=== PATIENT | female | born 1990 | race Caucasian/White ===

== ENCOUNTER 2023-04-06 09:01 | Outpatient (REF) | payer OTHER, SELFPAY ==
[2023-04-06 11:32] LABS: Alanine Aminotransferase 48 U/L (0-31); Albumin Level 4.4 g/dL (3.5-5.0); Alkaline Phosphatase 59 U/L (39-117); Aspartate Amino Transferase 36 U/L (5-31); Bilirubin Direct 0.2 mg/dL (0.0-0.5); Bilirubin Total 0.5 mg/dL (0.0-1.0); C Reactive Protein < 0.04 mg/dL (< or = 0.50); Total Protein 7.4 g/dL (6.5-8.0)
[2023-04-06 11:34] LABS: HBS Num1 1.11 mIU/mL (0-7.99); HBc Num1 0.09 S/CO (0.00-0.79); HBsAGNum1 0.26 S/CO (0.00-0.99); HIV AB/AG Nonreactive (Nonreactive); HIV Num 1 0.05 S/CO (0.00-0.99); Hepatitis B Core Antibody Nonreactive (Nonreactive); ~HepC Num1 0.13 S/CO (0.00-0.79); ~Hepatitis A Antibody IgM Nonreactive (Nonreactive); ~Hepatitis B Surface Antibody NONREACTIVE (Nonreactive); ~Hepatitis C Antibody Nonreactive (Nonreactive)
[2023-04-06 11:35] LABS: Hepatitis B Surface Antigen Negative (Negative)
[2023-04-06 11:48] LABS: Ferritin 44 ng/mL (10-122); TSH reflex Free T4 0.91 uIU/mL (0.32-4.0)
[2023-04-06 11:57] LABS: Gamma Glutamyl Transpeptidase 14 U/L (7-33)
[2023-04-07 05:54] LABS: EBV-NA IgG Index >600.00 U/mL; EBV-VCA IgM Ab <36.00 U/mL
[2023-04-07 16:53] LABS: Mitochondrial Antibodies NEGATIVE (NEGATIVE)
[2023-04-10 12:24] LABS: Smooth Muscle Antibody <20 U (<20)
[2023-04-12 12:58] LABS: ANA Pattern 2 Nuclear, Speckled; ANA Titer 2 1:40 titer; Anti Nuclear Antibody Screen POSITIVE (NEGATIVE)
== END 2023-04-06 09:02 | disposition home or self-care (01) ==
LOC: HO.LAB 09:01
PROVIDERS: PCP Family Medicine; Visit Provider Nurse Practitioner
DX: Z01.818 Encounter for other preprocedural examination (principal); R19.7 Diarrhea, unspecified; R11.0 Nausea; R74.01 Elevation of levels of liver transaminase levels
CPT/HCPCS: 36415; 80076; 82105; 82728; 82977; 84443; 86015; 86038; 86039; 86140; 86381; 86664; 86665; 86704; 86706; 86709; 86803; 87340; 87389

== ENCOUNTER 2023-04-06 09:01 | Outpatient (AMB) | payer OTHER, SELFPAY ==
--- NOTE | 2023-04-06 09:03 | MHC.OFFVIS ---
Intake Vital Signs 04/06/23 09:06 Height 5 ft 3 in Weight 130 lb BMI 23.0 BP 101/61 Blood Pressure Location Lt brachial Position Sitting Pulse 71 Intake Visit Reasons: Colonoscopy Screening / Diarreha Intake Note: Dalia presents in the office as a new patient colonoscopy screening and diarrhea. CC: In general she will have pains in her stomach. No blood when she has a BM. She suffers from reflux when she eats. Allergies coconut [COCONUT] Allergy (Unknown, Unverified 04/06/23 09:05) TONGUE ITCHY gluten [GLUTEN] Allergy (Unknown, Unverified 04/06/23 09:05) CELIACS DISEASE TREE NUTS Allergy (Unknown, Uncoded 04/06/23 09:05) TONGUE ITCHY WITH SOME TREE NUTS, GI SXS HPI Colonoscopy Screening / Diarreha HPI Details 32-year-old female here for initial evaluation of acute onset dyspepsia and diarrhea. She is referred by Pat Ware MD of [facility]. PMX Asthma Celiac disease Depression/anxiety/OCD Seasonal allergies History of ASCUS * SURGICAL HISTORY bilateral self injectomy fallopian tubes removed [place] teeth removed. * ALLERGIES : NKDA * PCP supplied labs test results: 12/2022 unremarkable CBC, unremarkable renal panel, total bilirubin normal AST/ALT elevated 45/62 with a normal alk-phos, negative H pylori breath, negative stool culture and ova and parasites study, negative tTG a study ULTRASOUND STUDY ORDERED BY PCP WAS OF THE PELVIS ONLY SHOWED POSSIBLE ENDOMETRIAL POLYP TODAY'S VISIT She she had a sudden onset of diarrhea in December 2022 with postprandial bowel movements initially were mixed to saw in early January worsened to pure liquid stools the bowel movement she had a lot of mucus and sometimes was passing only mucus. With this she had frequent nausea but no vomiting or dysphagia, also she would have intermittent right lower quadrant that she described as aching that would last about a day. It would range about 3/10 in intensity. She continues to have severe bloating. Her bowels are now more solid but she does not know why. The only change she has made is that she is eating more slowly and chewing her food more thoroughly. She admits that she just went through a very stressful loss of a personal relationship and this stress is now easing. She cannot identify any new medications or medication changes, illness, or diet changes that pre seated the change in her stooling. She has known celiac to but has religiously avoided gluten for over 10 years. Her tissue transglutaminase provided by her primary care provider backed this. She has also had extensive allergy testing for other things and the only thing this uncovered was lactose intolerance Alysha nut allergy. There is no known family history of gallbladder disease. She also incidentally has had an increase in her transaminases noted on routine lab work. There is no known family history of liver disease. She will only drink alcohol about 5 times a year and certainly not to access she is not overweight and has not gained weight recently. I will add basic labs to work this up to see if there is any reversible causes... We will get a colonoscopy along with a fecal calprotectin and pancreatic elastaste to further explore her symptoms. I think an ultrasound would be prudent to rule out any possible gallbladder disease. This will also allow us to see what her liver looks like. At this point there are no new interventions and I will see her after the colonoscopy to go over all of her labs. There are any very abnormal labs I will contact her for further testing or consideration she was advised to sign up for patient portal and given her medical record number to facilitate this. There are no prior problems with anesthesia or sedation. Her asthma is well controlled and she denies any cardiac problems. There are no infectious disease problems. There is no known family history of colon cancer or other colon Diseases such as IBD etc. [facility] Medical History (Updated 04/06/23 @ 12:07 by GREGORIA Meehan) Pap smear vag w ASC-US Surgical History (Updated 04/06/23 @ 12:04 by GREGORIA Meehan) H/O wisdom tooth extraction H/O bilateral salpingectomy Hx of colonoscopy History of esophagogastroduodenoscopy (EGD) Family History (Updated 04/06/23 @ 12:05 by GREGORIA Meehan) Father Celiac disease Social History (Updated 04/06/23 @ 09:13 by DIANE Morataya) Alcohol intake: current Alcohol intake frequency: holidays/special occasions only Patient Tobacco Use Status: Never used Tobacco Use of substances other than those prescribed or required for medical reasons: No Review of Systems Const Denies fatigue, Denies fever(s), Denies night sweats, Denies poor appetite and Denies weight loss Eyes Details: glasses Reports requires corrective lenses ENT Reports Normal hearing present, Denies dental pain, Denies dysphagia, Denies hearing loss, Denies mouth pain, Denies odynophagia, Denies throat swelling, Denies tongue swelling and Reports other (Dentition adequate) Card Reports no additional complaints Resp Reports no additional complaints GI Denies abdominal pain, Denies melena, Reports bloating, Denies hematochezia, Denies constipation, Denies GI cramping, Denies dysphagia, Denies excessive flatus, Denies early satiety, Denies heartburn, Reports diarrhea, Reports nausea, Denies odynophagia, Denies vomiting and Denies hematemesis Skin/Breast Denies pruritus, Denies lesions, Denies rash and Denies jaundice Neuro Reports Normal hearing present and Denies Abnormal speech present Psych Reports anxiety Endo Denies fatigue Aller/Immun Denies throat swelling and Denies tongue swelling Physical Exam Vital Signs: Last Vital Signs Pulse 71 04/06/23 09:06 BP 101/61 04/06/23 09:06 BMI result Body Mass Index 23.0 Const General: cooperative, no acute distress, well developed and well groomed Nutritional Appearance: average body habitus and well nourished Orientation/consciousness: oriented to person, oriented to place and oriented to time Limitations: No language barrier HEENT Head: Yes normocephalic and Yes atraumatic Eyes General: appearance normal, both eyes and all related structures Pupils: Equal, round and reactive pupils present Neck Neck: Yes normal visual inspection and Yes no lymphadenopathy Thyroid: Thyroid normal Resp Effort & Inspection: normal respiratory effort and able to speak in complete sentences Auscultation: clear to auscultation bilaterally Cardio Rate: regular rate Rhythm: regular rhythm Heart sounds: Normal, physiologic split S2 sound present Peripheral pulses: radial pulses present and posterior tibial pulses present GI Inspection: No distended and No Abdominal panniculus present Palpation (GI): Soft to palpation, nontender, no guarding, not rigid and No hepatosplenomegaly present Percussion: Yes normal to percussion Auscultation: normal bowel sounds Rectal Exam - Female: deferred Abdomen image: 1. Surgical scar Skin General skin exam: no rashes or lesions noted, turgor normal, skin not dry, no jaundice, No spider nevi and no striae Rashes: no rashes Nails: normal Neuro General: oriented to person, oriented to place and oriented to time Cranial nerves: Yes Equal, round and reactive pupils present and Yes Normal hearing present Speech: No Abnormal speech present Extrem General: Yes normal to inspection, No clubbing, No cyanosis and No edema Psych Appearance: grossly normal and well kempt Mental Status: mental status grossly normal Speech and movement: Normal speech and movement present Affect: normal affect Attitude: cooperative Thought process: Normal thought process present and not confabulating Thought content: Normal thought content present Insight: Fair insight present (Psych) Judgement: Fair judgement present (Psych) Assessment & Plan Assessment & Plan (1) Pre-op examination: Code(s): Z01.818 - Encounter for other preprocedural examination (2) Diarrhea: Code(s): R19.7 - Diarrhea, unspecified (3) Transaminitis: Code(s): R74.01 - Elevation of levels of liver transaminase levels (4) Nausea: Code(s): R11.0 - Nausea Plan She she had a sudden onset of diarrhea in December 2022 with postprandial bowel movements initially were mixed to saw in early January worsened to pure liquid stools the bowel movement she had a lot of mucus and sometimes was passing only mucus. With this she had frequent nausea but no vomiting or dysphagia, also she would have intermittent right lower quadrant that she described as aching that would last about a day. It would range about 3/10 in intensity. She continues to have severe bloating. Her bowels are now more solid but she does not know why. The only change she has made is that she is eating more slowly and chewing her food more thoroughly. She admits that she just went through a very stressful loss of a personal relationship and this stress is now easing. She cannot identify any new medications or medication changes, illness, or diet changes that pre seated the change in her stooling. She has known celiac to but has religiously avoided gluten for over 10 years. Her tissue transglutaminase provided by her primary care provider backed this. She has also had extensive allergy testing for other things and the only thing this uncovered was lactose intolerance Alysha nut allergy. There is no known family history of gallbladder disease. She also incidentally has had an increase in her transaminases noted on routine lab work. There is no known family history of liver disease. She will only drink alcohol about 5 times a year and certainly not to access she is not overweight and has not gained weight recently. I will add basic labs to work this up to see if there is any reversible causes... We will get a colonoscopy along with a fecal calprotectin and pancreatic elastaste to further explore her symptoms. I think an ultrasound would be prudent to rule out any possible gallbladder disease. This will also allow us to see what her liver looks like. At this point there are no new interventions and I will see her after the colonoscopy to go over all of her labs. There are any very abnormal labs I will contact her for further testing or consideration she was advised to sign up for patient portal and given her medical record number to facilitate this. There are no prior problems with anesthesia or sedation. Her asthma is well controlled and she denies any cardiac problems. There are no infectious disease problems. There is no known family history of colon cancer or other colon Diseases such as IBD etc. Orders: Orders Colonoscopy - GI Use Only Today Z01.818 - Encounter for other preprocedural examination C Reactive Protein Today R19.7 - Diarrhea, unspecified, Z01.818 - Encounter for other preprocedural examination US abdomen complete Today R19.7 - Diarrhea, unspecified, Z01.818 - Encounter for other preprocedural examination CELINE Reflex Titer and Pattern Today R74.01 - Elevation of levels of liver transaminase levels Ferritin Today R74.01 - Elevation of levels of liver transaminase levels TSH reflex Free T4 Today R74.01 - Elevation of levels of liver transaminase levels Smooth Muscle Antibody Today R74.01 - Elevation of levels of liver transaminase levels Pancreatic Elastase-1 Today R19.7 - Diarrhea, unspecified, Z01.818 - Encounter for other preprocedural examination Calprotectin, Fecal Today R19.7 - Diarrhea, unspecified, Z01.818 - Encounter for other preprocedural examination Alpha Fetoprotein Today R74.01 - Elevation of levels of liver transaminase levels Paige-Martinez Virus Profile Today R74.01 - Elevation of levels of liver transaminase levels Gamma Glutamyl Transpeptidase Today R74.01 - Elevation of levels of liver transaminase levels Hepatitis A,B,C Profile Today R74.01 - Elevation of levels of liver transaminase levels HIV Ab/Ag Today R74.01 - Elevation of levels of liver transaminase levels Mitochondrial Antibody Today R74.01 - Elevation of levels of liver transaminase levels Liver Panel Today R74.01 - Elevation of levels of liver transaminase levels Medications: New sodium,potassium,mag sulfates 17.5-3.13-1.6 gram (Suprep Bowel Prep Kit) 480 mL orally; 354 mL 0RF sodium,potassium,mag sulfates 17.5-3.13-1.6 gram (Suprep Bowel Prep Kit) 480 mL orally; 354 mL 0RF Coding Level of Care Code New Pt Level 3 (45367) Diagnoses Pre-op examination Z01.818 Diarrhea R19.7 Transaminitis R74.01 Nausea R11.0
[2023-04-06 09:06] VITALS: BP 101/61; PULSE 71; BMI 23.0
== END 2023-04-06 10:14 | disposition home or self-care (01) ==
PROVIDERS: PCP Family Medicine; Visit Provider Nurse Practitioner
DX: R19.7 Diarrhea, unspecified (principal); R74.01 Elevation of levels of liver transaminase levels; R11.0 Nausea
CPT/HCPCS: 99203

== ENCOUNTER 2023-06-15 08:00 | Outpatient (REF) | payer OTHER, SELFPAY ==
--- NOTE | ~2023-06-15 | US_ITS ---
EXAMINATION: US ABDOMEN COMPLETE CLINICAL INFORMATION: Encounter for other preprocedural examination. COMPARISON: None available. TECHNIQUE: Real-time imaging of the abdominal viscera. Limited visualization due to bowel gas. FINDINGS: PANCREAS: Limited visualization of pancreatic tail and head. Imaged portion of pancreatic body is unremarkable. ABDOMINAL AORTA: Unremarkable. INFERIOR VENA CAVA: Visualized portions are normal. LIVER: Mild hepatic parenchymal heterogeneity and echogenicity could be associated with hepatocellular disease/hepatic steatosis and substantially limits visualization. Correlation with liver function tests and clinical exam recommended to determine further management. GALLBLADDER: No gallstones. No gallbladder wall thickening. COMMON BILE DUCT: Measures 0.2 cm in diameter. RIGHT KIDNEY: Mild fullness right renal pelvis with prominent renal pyramids. No renal calculi. Renal cortical thickness is normal. Limited visualization. The kidney measures 10.1 cm in maximum dimension. LEFT KIDNEY: No hydronephrosis. No renal calculi. Renal cortical thickness is normal. Limited visualization. The kidney measures 10.0 cm in maximum dimension. SPLEEN: Normal. The spleen measures 9.7 cm in maximum dimension. FREE FLUID: None. US/US abdomen complete IMPRESSION: 1. Mild increased hepatic parenchymal heterogeneity and echogenicity could be associated with hepatocellular disease/hepatic steatosis and substantially limits visualization. Correlation with liver function tests and clinical exam recommended to determine further management. 2. Mild fullness right renal pelvis with prominent renal pyramids. No renal calculi.
== END 2023-06-15 08:01 | disposition home or self-care (01) ==
LOC: HO.US 08:00
PROVIDERS: PCP Family Medicine; Visit Provider Nurse Practitioner
DX: Z01.818 Encounter for other preprocedural examination (principal); R19.7 Diarrhea, unspecified
CPT/HCPCS: 76700

== ENCOUNTER 2023-09-02 10:18 | Outpatient (REF) | payer OTHER, SELFPAY ==
[2023-09-09 20:38] LABS: Calprotectin, Fecal 19 mcg/g
[2023-09-10 17:38] LABS: Pancreatic Elastase-1 >500 mcg/g
== END 2023-09-02 10:19 | disposition home or self-care (01) ==
LOC: HO.LNP 10:18
PROVIDERS: Visit Provider Nurse Practitioner
DX: Z01.818 Encounter for other preprocedural examination (principal); R19.7 Diarrhea, unspecified
CPT/HCPCS: 82656; 83993

== ENCOUNTER 2023-09-09 15:03 | Outpatient (AMB) | payer OTHER, SELFPAY ==
--- NOTE | 2023-09-09 15:13 | MHC.OFFVIS ---
Vital Signs 09/09/23 15:14 Height 5 ft 3 in BMI Reason not done Patient refused/unable BP 103/54 L Blood Pressure Location Rt brachial Position Sitting Intake Visit Reasons: Follow up Intake Note: Dalia returns to in office follow up of labs and US. CC: Patient states that she gets diarrhea only when she eats certain foods. She states that acid reflux is presents but managed . She expresses concerns about liver findings in US and would like to discuss further today with provider. Corporate Relations Manager Required: No Accompanied by: Self / Same As Patient Allergies coconut [COCONUT] Allergy (Unknown, Verified 09/09/23 15:15) TONGUE ITCHY gluten [GLUTEN] Allergy (Unknown, Verified 09/09/23 15:15) CELIACS DISEASE No Known Drug Allergies Allergy (Unknown, Verified 09/09/23 15:19) none mixed fish Allergy (Unknown, Uncoded 09/09/23 15:19) Unknown TREE NUTS Allergy (Unknown, Uncoded 04/06/23 09:05) TONGUE ITCHY WITH SOME TREE NUTS, GI SXS HPI HPI Follow up: Details: Assessment & Plan (1) Pre-op examination: Code(s): Z01.818 - Encounter for other preprocedural examination (2) Diarrhea: Code(s): R19.7 - Diarrhea, unspecified (3) Transaminitis: Code(s): R74.01 - Elevation of levels of liver transaminase levels (4) Nausea: Code(s): R11.0 - Nausea Plan She she had a sudden onset of diarrhea in December 2022 with postprandial bowel movements initially were mixed to saw in early January worsened to pure liquid stools the bowel movement she had a lot of mucus and sometimes was passing only mucus. With this she had frequent nausea but no vomiting or dysphagia, also she would have intermittent right lower quadrant that she described as aching that would last about a day. It would range about 3/10 in intensity. She continues to have severe bloating. Her bowels are now more solid but she does not know why. The only change she has made is that she is eating more slowly and chewing her food more thoroughly. She admits that she just went through a very stressful loss of a personal relationship and this stress is now easing. She cannot identify any new medications or medication changes, illness, or diet changes that pre seated the change in her stooling. She has known celiac to but has religiously avoided gluten for over 10 years. Her tissue transglutaminase provided by her primary care provider backed this. She has also had extensive allergy testing for other things and the only thing this uncovered was lactose intolerance Alysha nut allergy. There is no known family history of gallbladder disease. She also incidentally has had an increase in her transaminases noted on routine lab work. There is no known family history of liver disease. She will only drink alcohol about 5 times a year and certainly not to access she is not overweight and has not gained weight recently. I will add basic labs to work this up to see if there is any reversible causes... We will get a colonoscopy along with a fecal calprotectin and pancreatic elastaste to further explore her symptoms. I think an ultrasound would be prudent to rule out any possible gallbladder disease. This will also allow us to see what her liver looks like. At this point there are no new interventions and I will see her after the colonoscopy to go over all of her labs. There are any very abnormal labs I will contact her for further testing or consideration she was advised to sign up for patient portal and given her medical record number to facilitate this. There are no prior problems with anesthesia or sedation. Her asthma is well controlled and she denies any cardiac problems. There are no infectious disease problems. There is no known family history of colon cancer or other colon Diseases such as IBD etc. Orders: Orders Colonoscopy - GI Use Only Today Z01.818 - Encounter for other preprocedural examination C Reactive Protein Today R19.7 - Diarrhea, unspecified, Z01.818 - Encounter for other preprocedural examination US abdomen complete Today R19.7 - Diarrhea, unspecified, Z01.818 - Encounter for other preprocedural examination CELINE Reflex Titer and Pattern Today R74.01 - Elevation of levels of liver transaminase levels Ferritin Today R74.01 - Elevation of levels of liver transaminase levels TSH reflex Free T4 Today R74.01 - Elevation of levels of liver transaminase levels Smooth Muscle Antibody Today R74.01 - Elevation of levels of liver transaminase levels Pancreatic Elastase-1 Today R19.7 - Diarrhea, unspecified, Z01.818 - Encounter for other preprocedural examination Calprotectin, Fecal Today R19.7 - Diarrhea, unspecified, Z01.818 - Encounter for other preprocedural examination Alpha Fetoprotein Today R74.01 - Elevation of levels of liver transaminase levels Paige-Martinez Virus Profile Today R74.01 - Elevation of levels of liver transaminase levels Gamma Glutamyl Transpeptidase Today R74.01 - Elevation of levels of liver transaminase levels Hepatitis A,B,C Profile Today R74.01 - Elevation of levels of liver transaminase levels HIV Ab/Ag Today R74.01 - Elevation of levels of liver transaminase levels Mitochondrial Antibody Today R74.01 - Elevation of levels of liver transaminase levels Liver Panel Today R74.01 - Elevation of levels of liver transaminase levels Medications: New sodium,potassium,mag sulfates 17.5-3.13-1.6 gram (Suprep Bowel Prep Kit) 480 mL orally; 354 mL 0RF sodium,potassium,mag sulfates 17.5-3.13-1.6 gram (Suprep Bowel Prep Kit) 480 mL orally; 354 mL 0RF LABS: Laboratory Tests 04/06/23 09/02/23 10:08 20:15 Ferritin 44 Total Bilirubin 0.5 Direct Bilirubin 0.2 GGT 14 AST 36 H ALT 48 H Alkaline Phosphatase 59 C-Reactive Protein < 0.04 Alpha Fetoprotein 1.0 TSH 0.91 Stool Calprotectin Pending Stool Pancreat Elastase Pending CELINE Screen POSITIVE A CELINE Titer 1:80 H CELINE Titer 2 1:40 H CELINE Pattern A CELINE Pattern 2 Nuclear, Speckled A Anti-Mitochondrial Ab NEGATIVE Anti-Smooth Muscle Ab <20 Hepatitis A IgM Ab Nonreactive Hep Bs Antigen Negative Hep Bs Antibody NONREACTIVE Hep B Core Total Ab Nonreactive Hepatitis C Ab (EIA) Nonreactive HIV 1&2 Ab/P24 Ag 4thGn Nonreactive ULTRASOUND OF THE ABDOMEN 06/15/23 FINDINGS: PANCREAS: Limited visualization of pancreatic tail and head. Imaged portion of pancreatic body is unremarkable. ABDOMINAL AORTA: Unremarkable. INFERIOR VENA CAVA: Visualized portions are normal. LIVER: Mild hepatic parenchymal heterogeneity and echogenicity could be associated with hepatocellular disease/hepatic steatosis and substantially limits visualization. Correlation with liver function tests and clinical exam recommended to determine further management. GALLBLADDER: No gallstones. No gallbladder wall thickening. COMMON BILE DUCT: Measures 0.2 cm in diameter. RIGHT KIDNEY: Mild fullness right renal pelvis with prominent renal pyramids. No renal calculi. Renal cortical thickness is normal. Limited visualization. The kidney measures 10.1 cm in maximum dimension. LEFT KIDNEY: No hydronephrosis. No renal calculi. Renal cortical thickness is normal. Limited visualization. The kidney measures 10.0 cm in maximum dimension. SPLEEN: Normal. The spleen measures 9.7 cm in maximum dimension. FREE FLUID: None. US/US abdomen complete IMPRESSION: 1. Mild increased hepatic parenchymal heterogeneity and echogenicity could be associated with hepatocellular disease/hepatic steatosis and substantially limits visualization. Correlation with liver function tests and clinical exam recommended to determine further management. 2. Mild fullness right renal pelvis with prominent renal pyramids. No renal calculi. COLONOSCOPY SCHEDULED FOR 12/12/2023 BIOPSY TODAY'S VISIT She has found some correlation between foods causing her diarrhea usually high FODMAP foods, cashews, bananas and o fcourse wheat (Celiac disease) and lactose intolerant. Garlic also drives this. The nausea and cramping have also improved. We still have some stool studies pending but I expect that these probably will not be significant for inflammatory bowel disease. Review all of the labs and appears she simply has fatty liver disease so she is educated about this. She is happy now with a GI regimen and agreeable to keeping her appointment in November after her colonoscopy. [facility] Medical History Pap smear vag w [facility] Surgical History H/O wisdom tooth extraction H/O bilateral salpingectomy Hx of colonoscopy History of esophagogastroduodenoscopy (EGD) Family History Father Celiac disease Social History Alcohol intake: current Alcohol intake frequency: holidays/special occasions only Patient Tobacco Use Status: Never used Tobacco Use of substances other than those prescribed or required for medical reasons: No Are you DNR?: No Advance Directives: No Advance Directives Information Provided: Yes Review of Systems Const Denies fatigue, Denies fever(s), Denies night sweats, Denies poor appetite and Denies weight loss ENT Reports Normal hearing present, Denies dental pain, Denies dysphagia, Denies hearing loss, Denies mouth pain, Denies odynophagia, Denies throat swelling, Denies tongue swelling and Reports other (Dentition adequate) Card Reports no additional complaints Resp Reports no additional complaints GI Details: Denies abdominal pain, Denies melena, Reports bloating, Denies hematochezia, Denies constipation, Reports GI cramping, Denies dysphagia, Denies excessive flatus, Denies early satiety, Denies heartburn, Reports diarrhea, Denies nausea, Denies odynophagia, Denies vomiting and Denies hematemesis Skin/Breast Denies pruritus, Denies lesions, Denies rash and Denies jaundice Neuro Reports Normal hearing present and Denies Abnormal speech present Endo Denies fatigue Aller/Immun Denies throat swelling and Denies tongue swelling Physical Exam Vital Signs: Last Vital Signs BP 103/54 L 09/09/23 15:14 Const General: cooperative, no acute distress, well developed and well groomed Nutritional Appearance: average body habitus and well nourished Orientation/consciousness: oriented to person, oriented to place and oriented to time Limitations: No language barrier HEENT Head: Yes normocephalic and Yes atraumatic Eyes General: appearance normal, both eyes and all related structures Pupils: Equal, round and reactive pupils present Neck Neck: Yes normal visual inspection and Yes no lymphadenopathy Thyroid: Thyroid normal Resp Effort & Inspection: normal respiratory effort and able to speak in complete sentences Auscultation: clear to auscultation bilaterally Cardio Rate: regular rate Rhythm: regular rhythm Heart sounds: Normal, physiologic split S2 sound present Peripheral pulses: radial pulses present and posterior tibial pulses present GI Inspection: No distended and No Abdominal panniculus present Palpation (GI): Soft to palpation, nontender, no guarding, not rigid and No hepatosplenomegaly present Percussion: Yes normal to percussion Auscultation: normal bowel sounds Rectal Exam - Female: deferred Skin General skin exam: no rashes or lesions noted, turgor normal, skin not dry, no jaundice, No spider nevi and no striae Rashes: no rashes Nails: normal Neuro General: oriented to person, oriented to place and oriented to time Cranial nerves: Yes Equal, round and reactive pupils present and Yes Normal hearing present Speech: No Abnormal speech present Extrem General: Yes normal to inspection, No clubbing, No cyanosis and No edema Psych Appearance: grossly normal and well kempt Mental Status: mental status grossly normal Speech and movement: Normal speech and movement present Affect: normal affect Attitude: cooperative Thought process: Normal thought process present and not confabulating Thought content: Normal thought content present Insight: Fair insight present (Psych) Judgement: Fair judgement present (Psych) Results Reviewed Results Reviewed: Laboratory Tests 04/06/23 09/02/23 10:08 20:15 Ferritin 44 Total Bilirubin 0.5 Direct Bilirubin 0.2 GGT 14 AST 36 H ALT 48 H Alkaline Phosphatase 59 C-Reactive Protein < 0.04 Alpha Fetoprotein 1.0 TSH 0.91 Stool Calprotectin Pending Stool Pancreat Elastase Pending CELINE Screen POSITIVE A CELINE Titer 1:80 H CELINE Titer 2 1:40 H CELINE Pattern A CELINE Pattern 2 Nuclear, Speckled A Anti-Mitochondrial Ab NEGATIVE Anti-Smooth Muscle Ab <20 Hepatitis A IgM Ab Nonreactive Hep Bs Antigen Negative Hep Bs Antibody NONREACTIVE Hep B Core Total Ab Nonreactive Hepatitis C Ab (EIA) Nonreactive HIV 1&2 Ab/P24 Ag 4thGn Nonreactive ULTRASOUND OF THE ABDOMEN 06/15/23 FINDINGS: PANCREAS: Limited visualization of pancreatic tail and head. Imaged portion of pancreatic body is unremarkable. ABDOMINAL AORTA: Unremarkable. INFERIOR VENA CAVA: Visualized portions are normal. LIVER: Mild hepatic parenchymal heterogeneity and echogenicity could be associated with hepatocellular disease/hepatic steatosis and substantially limits visualization. Correlation with liver function tests and clinical exam recommended to determine further management. GALLBLADDER: No gallstones. No gallbladder wall thickening. COMMON BILE DUCT: Measures 0.2 cm in diameter. RIGHT KIDNEY: Mild fullness right renal pelvis with prominent renal pyramids. No renal calculi. Renal cortical thickness is normal. Limited visualization. The kidney measures 10.1 cm in maximum dimension. LEFT KIDNEY: No hydronephrosis. No renal calculi. Renal cortical thickness is normal. Limited visualization. The kidney measures 10.0 cm in maximum dimension. SPLEEN: Normal. The spleen measures 9.7 cm in maximum dimension. FREE FLUID: None. US/US abdomen complete IMPRESSION: 1. Mild increased hepatic parenchymal heterogeneity and echogenicity could be associated with hepatocellular disease/hepatic steatosis and substantially limits visualization. Correlation with liver function tests and clinical exam recommended to determine further management. 2. Mild fullness right renal pelvis with prominent renal pyramids. No renal calculi. Assessment & Plan Assessment & Plan (1) Diarrhea: Code(s): R19.7 - Diarrhea, unspecified Category: Medical (2) Transaminitis: Code(s): R74.01 - Elevation of levels of liver transaminase levels Category: Medical (3) Celiac disease: Code(s): K90.0 - Celiac disease Category: Medical (4) Lactose intolerance: Code(s): E73.9 - Lactose intolerance, unspecified Category: Medical Plan She has found some correlation between foods causing her diarrhea usually high FODMAP foods, cashews, bananas and o fcourse wheat (Celiac disease) and lactose intolerant. Garlic also drives this. The nausea and cramping have also improved. We still have some stool studies pending but I expect that these probably will not be significant for inflammatory bowel disease. Review all of the labs and appears she simply has fatty liver disease so she is educated about this. She is happy now with a GI regimen and agreeable to keeping her appointment in November after her colonoscopy. COLONOSCOPY SCHEDULED FOR 12/12/2023 BIOPSY Coding Level of Care Code Est Pt Level 3 (96259) Diagnoses Diarrhea R19.7 Transaminitis R74.01 Celiac disease K90.0 Lactose intolerance E73.9
[2023-09-09 15:14] VITALS: BP 103/54
== END 2023-09-09 15:45 | disposition home or self-care (01) ==
PROVIDERS: PCP Family Medicine; Visit Provider Nurse Practitioner
DX: R19.7 Diarrhea, unspecified (principal); R74.01 Elevation of levels of liver transaminase levels; K90.0 Celiac disease; E73.9 Lactose intolerance, unspecified
CPT/HCPCS: 99213

== ENCOUNTER → 2023-09-09 15:03 | Outpatient (BNVA) | payer OTHER, SELFPAY | PROVIDERS: PCP Family Medicine; Visit Provider Nurse Practitioner ==

== ENCOUNTER 2023-10-03 06:26 | Day surgery (SDC) | payer OTHER, SELFPAY ==
--- NOTE | 2023-09-29 09:33 | P.CONAN_ITS ---
Documented by User: Kayla Cisse NP 09/29/23 09:34 HPI - Anesthesia Eval Consult details Narrative: 33yo F for Colonoscopy PMFSH Active Problems Active Problems: All Active Problems Nausea (Acute) Seasonal allergies (Acute) OCD (obsessive compulsive disorder) (Acute) Depression with anxiety (Acute) Lactose intolerance (Acute) Celiac disease (Acute) Asthma (Acute) Transaminitis (Acute) Diarrhea (Acute) Pre-op examination (Acute) Past Medical History Medical History Pap smear vag w [facility] Family History Family History Father Celiac disease Surgical History Surgical History H/O wisdom tooth extraction H/O bilateral salpingectomy Hx of colonoscopy History of esophagogastroduodenoscopy (EGD) Social History Social History Alcohol intake: current Alcohol intake frequency: holidays/special occasions only Patient Tobacco Use Status: Never used Tobacco Use of substances other than those prescribed or required for medical reasons: No Are you DNR?: No Advance Directives: No Advance Directives Information Provided: Yes Meds Allergies Allergy/AdvReac Type Severity Reaction Status Date / Time coconut [COCONUT] Allergy Unknown TONGUE Verified 09/09/23 15:15 ITCHY gluten [GLUTEN] Allergy Unknown CELIACS Verified 09/09/23 15:15 DISEASE No Known Drug Allergies Allergy Unknown none Verified 09/09/23 15:19 mixed fish Allergy Unknown Unknown Uncoded 09/09/23 15:19 TREE NUTS Allergy Unknown TONGUE Uncoded 04/06/23 09:05 ITCHY WITH SOME TREE NUTS, GI SXS Home Medications ?Medication ?Instructions ?Recorded ?Confirmed ?Last Taken ?Type albuterol sulfate 90 mcg/actuation 1 inh inhalation QID 04/06/23 Unknown History aerosol inhaler (ProAir HFA) cetirizine 10 mg capsule (All Day 10 mg PO DAILY PRN Allergy Symptoms 04/06/23 10/03/23 10/02/23 History Allergy (cetirizine)) clonazepam 0.5 mg tablet 0.5 mg PO DAILY PRN 04/06/23 Unknown History famotidine 10 mg tablet (Pepcid AC) 10 mg PO QDAY 04/06/23 10/03/23 10/02/23 History fluticasone propionate 50 1 spray intranasal DAILY 04/06/23 Unknown History mcg/actuation nasal spray,suspension (Flonase Allergy Relief) lamotrigine 100 mg tablet 100 mg PO BID 04/06/23 10/03/23 10/02/23 History propranolol 10 mg tablet 10 mg PO BID 04/06/23 10/03/23 10/02/23 History calcium phos,tribasic 260 mg-D3 25 1 tab PO DAILY 09/09/23 10/03/23 10/02/23 History mcg-herbal 50 mg chewable tablet (Alive Calcium-Vitamin D3) fluoxetine 10 mg capsule 10 mg PO DAILY 09/09/23 10/03/23 10/02/23 History Exam Height,Weight and Vital Signs: Height 5 ft 3 in Assessment and Plan Assessment Anesthesia Assessment: Chart Reviewed Documented by User: Mino Tamayo MD 10/03/23 07:12 PMFSH Past Medical History Medical History Pap smear vag w [facility]-US Family History Family History Father Celiac disease Family history of problems with anesthesia: No Surgical History Surgical History H/O wisdom tooth extraction H/O bilateral salpingectomy Hx of colonoscopy History of esophagogastroduodenoscopy (EGD) History of Problems with Anesthesia: No Social History Social History Alcohol intake: current Alcohol intake frequency: holidays/special occasions only Patient Tobacco Use Status: Never used Tobacco Use of substances other than those prescribed or required for medical reasons: No Are you DNR?: No Advance Directives: No Advance Directives Information Provided: Yes Meds Allergies Allergy/AdvReac Type Severity Reaction Status Date / Time coconut [COCONUT] Allergy Unknown TONGUE Verified 09/09/23 15:15 ITCHY gluten [GLUTEN] Allergy Unknown CELIACS Verified 09/09/23 15:15 DISEASE No Known Drug Allergies Allergy Unknown none Verified 09/09/23 15:19 mixed fish Allergy Unknown Unknown Uncoded 09/09/23 15:19 TREE NUTS Allergy Unknown TONGUE Uncoded 04/06/23 09:05 ITCHY WITH SOME TREE NUTS, GI SXS Home Medications ?Medication ?Instructions ?Recorded ?Confirmed ?Last Taken ?Type albuterol sulfate 90 mcg/actuation 1 inh inhalation QID 04/06/23 Unknown History aerosol inhaler (ProAir HFA) cetirizine 10 mg capsule (All Day 10 mg PO DAILY PRN Allergy Symptoms 04/06/23 10/03/23 10/02/23 History Allergy (cetirizine)) clonazepam 0.5 mg tablet 0.5 mg PO DAILY PRN 04/06/23 Unknown History famotidine 10 mg tablet (Pepcid AC) 10 mg PO QDAY 04/06/23 10/03/23 10/02/23 History fluticasone propionate 50 1 spray intranasal DAILY 04/06/23 Unknown History mcg/actuation nasal spray,suspension (Flonase Allergy Relief) lamotrigine 100 mg tablet 100 mg PO BID 04/06/23 10/03/23 10/02/23 History propranolol 10 mg tablet 10 mg PO BID 04/06/23 10/03/23 10/02/23 History calcium phos,tribasic 260 mg-D3 25 1 tab PO DAILY 09/09/23 10/03/23 10/02/23 History mcg-herbal 50 mg chewable tablet (Alive Calcium-Vitamin D3) fluoxetine 10 mg capsule 10 mg PO DAILY 09/09/23 10/03/23 10/02/23 History Exam Airway Mallampati Class: II TM Dist: >3cm Neck ROM: Full Loose/Missing/Broken Teeth: No Heart: rrr Lungs: cta Assessment and Plan Assessment Anesthesia Assessment: Anesthesia Plan Discussed Final Anesthetic Review Family History of Problems with Anesthesia: No History of Problems with Anesthesia: No NPO: Yes ASA Class: II Final Preanesthetic Review: No Changes in Pt Med Stat, Meds/Allgs Chart Revie wed, Consent Obtained/Reviewed and Anes Risks/Benef Reviewed Patient Risk: Intermediate Procedure Risk: Intermediate Anesthetic Plan Anesthetic Plan: MAC: Disposition: Standard PACU
[2023-10-03 06:30] VITALS: BMI 24.8
[2023-10-03 06:49] VITALS: BP 100/55; PULSE 69; RESP 16; TEMP 36.1; O2SAT 97
[2023-10-03] MEDS: Lactated Ringers 1,000 ML 100 ML IVCONT (06:50)
--- NOTE | 2023-10-03 07:15 | MHC.SHP ---
Pre-Procedural Eval Section A - 24 Hr Update-Section A only Date of Service: 10/03/23 The patient is an INPATIENT: No The patient has been examined within 24 hours of the surgical procedure. The History & Physical has been completed within 30 days and I have reviewed it.: Yes Section B - Complete if H&P > 30 days Chief Complaint: Diarrhea, FU of colon polyps Allergies: Allergies Allergy/AdvReac Type Severity Reaction Status Date / Time coconut [COCONUT] Allergy Unknown TONGUE Verified 09/09/23 15:15 ITCHY gluten [GLUTEN] Allergy Unknown CELIACS Verified 09/09/23 15:15 DISEASE No Known Drug Allergies Allergy Unknown none Verified 09/09/23 15:19 mixed fish Allergy Unknown Unknown Uncoded 09/09/23 15:19 TREE NUTS Allergy Unknown TONGUE Uncoded 04/06/23 09:05 ITCHY WITH SOME TREE NUTS, GI SXS Review of Systems Sugical H&P ROS: Negative: Constitution, Cardiovascular, Respiratory and Gastrointestinal Exam Surgical H&P Exam: Normal: Heart, Normal: Lungs, Normal: Extremities and Normal: Abdomen Plan Diagnosis/Plan: Change (proceed with colonoscopy) I have reviewed the history and physical and performed a pertinent physical examination on my patient. No changes have occurred unless specified. Time Spent With Patient Time: Total time managing care of this patient today ____ minutes.
--- NOTE | 2023-10-03 08:12 | HO.OPN-COLON ---
Colonoscopy Operative Note Operative Note Date of Service: 10/03/23 Narrative: COLONOSCOPY TILL CECUM WITH BIOPSIES Pre-op diagnosis: Chronic diarrhea, surveillance for colon polyps. Post-op diagnosis:? Hemorrhoids Endoscopist:? Jonnie Cheung MD Anesthesia:?MAC Consent: Indications for the procedure and potential complications of bleeding, perforation, reaction to medications and missed diagnosis were discussed with the patient and informed consent was obtained. Instrument: Olympus PCF H 190 L variable stiffness pediatric colonoscope Monitoring: Vital signs and clinical assessment, intermittent blood pressure monitoring, continuous EKG monitoring, Pulse oximetry and Carbon Dioxide monitoring were done throughout the procedure. Please see anesthesia flowsheet. Colon withdrawl time was 14 minutes. Procedure: The patient was placed in the left lateral decubitis position and pre-procedure medications were administered. After a digital rectal examination of the ano-rectum, the video colonoscope was inserted into the rectum and advanced through the colon to the cecum. The colonoscope was slowly withdrawn in a retrograde panoramic fashion and the colon mucosa was carefully examined including a retroflexed view of the rectum. Findings and interventions are described below. Procedure Difficulty: without difficulty - colon was long and there was some loop formation Findings: Terminal Ileum: Not evaluated Cecum: Normal Ascending Colon: Normal Transverse Colon: Normal Descending Colon: Normal Sigmoid Colon: Normal Rectum: Normal Ano-rectum: Small internal hemorrhoids Colon preparation: Fair despite copious irrigation. There were excessive seeds scattered throughout the colon which resulted in clogging of the scope channel [place] Bowel Preparation Scale Right colon; 2 Transverse colon: 1 Left colon; 2 (0 = Unprepared colon segment with mucosa not seen due to solid stool that cannot be cleared. 1 = Portion of mucosa of the colon segment seen, but other areas of the colon segment not well seen due to staining, residual stool and/or opaque liquid. 2 = Minor amount of residual staining, small fragments of stool and/or opaque liquid, but mucosa of colon segment seen well. 3 = Entire mucosa of colon segment seen well with no residual staining, small fragments of stool or opaque liquid) Impression and Post Procedure Diagnosis: Colonoscopy Findings: No polyps were detected Random biopsies were obtained from the right and left colon to check for microscopic colitis Small hemorrhoids on retroflexed exam. Plan: Pt has a FU appointment on 12/20/23 with Laura Kebede NP. Repeat Colonoscopy in 5 years if biopsies are normal - due to a hx of colon polyps and fair prep.
[2023-10-03 08:16] VITALS: BP 93/56; PULSE 66; RESP 12; TEMP 36.9; O2SAT 97
[2023-10-03 08:34] VITALS: BP 106/58; PULSE 60; RESP 18; TEMP 36.9; O2SAT 100
== END 2023-10-03 09:09 | disposition home or self-care (01) ==
PROVIDERS: PCP Family Medicine; Visit Provider Internal Medicine Gastroenterology
PROC: 0DJD8ZZ Inspection of Lower Intestinal Tract, Via Natural or Artificial Opening Endoscopic (ICD-10-PCS; CPT 45378; principal; 2023-10-03 07:30)
DX: K52.9 Noninfective gastroenteritis and colitis, unspecified (principal); K56.2 Volvulus; K64.8 Other hemorrhoids
CPT/HCPCS: 45380; 88305; J2704

== ENCOUNTER → 2023-10-03 06:26 | Outpatient (BNV) | payer OTHER, SELFPAY | PROVIDERS: PCP Family Medicine; Visit Provider Internal Medicine Gastroenterology | DX: K58.9 Irritable bowel syndrome, unspecified (principal); Z12.11 Encounter for screening for malignant neoplasm of colon; Z86.010 Personal history of colon polyps; K64.8 Other hemorrhoids | CPT/HCPCS: 45380 ==

== ENCOUNTER 2023-12-20 13:12 | Outpatient (AMB) | payer OTHER, SELFPAY ==
--- NOTE | 2023-12-20 13:20 | A.OFFVIS_ITS ---
Vital Signs 12/20/23 13:22 Height 5 ft 3 in Weight 143 lb 11.862 oz BMI 25.5 BP 97/62 Blood Pressure Location Rt brachial Position Sitting Pulse 67 Intake Visit Reasons: s/p colonoscopy Intake Note: Dalia presents to in office follow up s/p colonoscopy. CC: Patient states that she has been doing low FODMAP diet and that has helped tremendously. Denies having any new GI concerns today. Allergies latex Allergy (Severe, Verified 12/20/23 13:26) Itching coconut [COCONUT] Allergy (Unknown, Verified 12/20/23 13:26) TONGUE ITCHY gluten [GLUTEN] Allergy (Unknown, Verified 12/20/23 13:26) CELIACS DISEASE No Known Drug Allergies Allergy (Unknown, Verified 12/20/23 13:26) none mixed fish Allergy (Unknown, Uncoded 09/09/23 15:19) Unknown TREE NUTS Allergy (Unknown, Uncoded 04/06/23 09:05) TONGUE ITCHY WITH SOME TREE NUTS, GI SXS HPI HPI s/p colonoscopy: Details: Assessment & Plan (1) Diarrhea: Code(s): R19.7 - Diarrhea, unspecified Category: Medical (2) Transaminitis: Code(s): R74.01 - Elevation of levels of liver transaminase levels Category: Medical (3) Celiac disease: Code(s): K90.0 - Celiac disease Category: Medical (4) Lactose intolerance: Code(s): E73.9 - Lactose intolerance, unspecified Category: Medical Plan She has found some correlation between foods causing her diarrhea usually high FODMAP foods, cashews, bananas and ofcourse wheat (Celiac disease) and lactose intolerant. Garlic also drives this. The nausea and cramping have also improved. We still have some stool studies pending but I expect that these probably will not be significant for inflammatory bowel disease. Review all of the labs and appears she simply has fatty liver disease so she is educated about this. She is happy now with a GI regimen and agreeable to keeping her appointment in November after her colonoscopy. LABS: Laboratory Tests 09/02/23 20:15 Stool Calprotectin 19 Stool Pancreat Elastase >500 COLONOSCOPY Findings: Terminal Ileum: Not evaluated Cecum: Normal Ascending Colon: Normal Transverse Colon: Normal Descending Colon: Normal Sigmoid Colon: Normal Rectum: Normal Ano-rectum: Small internal hemorrhoids Colon preparation: Fair despite copious irrigation. There were excessive seeds scattered throughout the colon which resulted in clogging of the scope channel Impression and Post Procedure Diagnosis: Colonoscopy Findings: No polyps were detected Random biopsies were obtained from the right and left colon to check for microscopic colitis Small hemorrhoids on retroflexed exam. Plan: Pt has a FU appointment on 12/20/23 with Laura Kebede NP. Repeat Colonoscopy in 5 years if biopsies are normal - due to a hx of colon polyps and fair prep. TODAY'S VISIT She is agreeable to a 10 year follow up. The procedure was well tolerated. The results were explained and the patient is agreeable to the follow-up interval as stated. The bowel pattern has returned to normal. Education was provided to tell any 1st degree relatives about their findings to be sure that they are screened by age 45. Educated that they will be put on a recall list when it is time for their repeat scope but should they move out of state or away from the hospital they will need to remember along with their primary to repeat the procedure in a timely fashion to avoid any adverse complications. WE REVIEW HER LAST COLONOSCOPY FROM [facility] IN 2018 AND THERE WAS NO POLYP, ONLY NORMAL BIOPSIES ON PATHOLOGY. She has read about digestive enzymes and we will trial Creon. she has been following low FODMAP and doing better, BUT her food is limited. She will start this and adding back in foods to ID problems. ROV 12 weeks. [facility] Medical History Pre-op examination Pap smear vag w [facility] Surgical History H/O wisdom tooth extraction H/O bilateral salpingectomy Hx of colonoscopy History of esophagogastroduodenoscopy (EGD) Family History Father Celiac disease Social History Alcohol intake: current Alcohol intake frequency: holidays/special occasions only Patient Tobacco Use Status: Never used Tobacco Review of Systems Const Denies fatigue, Denies fever(s), Denies night sweats, Denies poor appetite and Denies weight loss ENT Reports Normal hearing present, Denies dental pain, Denies dysphagia, Denies hearing loss, Denies mouth pain, Denies odynophagia, Denies throat swelling, Denies tongue swelling and Reports other (Dentition adequate) Card Reports no additional complaints Resp Reports no additional complaints GI Details: Denies abdominal pain, Denies melena, Reports bloating, Denies hematochezia, Denies constipation, Denies GI cramping, Denies dysphagia, Denies excessive flatus, Denies early satiety, Denies heartburn, Reports diarrhea, Denies nausea, Denies odynophagia, Denies vomiting and Denies hematemesis Skin/Breast Denies pruritus, Denies lesions, Denies rash and Denies jaundice Neuro Reports Normal hearing present and Denies Abnormal speech present Endo Denies fatigue Aller/Immun Denies throat swelling and Denies tongue swelling Physical Exam Vital Signs: Last Vital Signs Pulse 67 12/20/23 13:22 BP 97/62 12/20/23 13:22 BMI result Body Mass Index 25.5 Const General: cooperative, no acute distress, well developed and well groomed Nutritional Appearance: average body habitus and well nourished Orientation/consciousness: oriented to person, oriented to place and oriented to time Limitations: No language barrier HEENT Head: Yes normocephalic and Yes atraumatic Eyes General: appearance normal, both eyes and all related structures Pupils: Equal, round and reactive pupils present Neck Neck: Yes normal visual inspection and Yes no lymphadenopathy Thyroid: Thyroid normal Resp Effort & Inspection: normal respiratory effort and able to speak in complete sentences Auscultation: clear to auscultation bilaterally Cardio Rate: regular rate Rhythm: regular rhythm Heart sounds: Normal, physiologic split S2 sound present Peripheral pulses: radial pulses present and posterior tibial pulses present GI Inspection: No distended and No Abdominal panniculus present Palpation (GI): Soft to palpation, nontender, no guarding, not rigid and No hepatosplenomegaly present Percussion: Yes normal to percussion Auscultation: normal bowel sounds Rectal Exam - Female: deferred Skin General skin exam: no rashes or lesions noted, turgor normal, skin not dry, no jaundice, No spider nevi and no striae Rashes: no rashes Nails: normal Neuro General: oriented to person, oriented to place and oriented to time Cranial nerves: Yes Equal, round and reactive pupils present and Yes Normal hearing present Speech: No Abnormal speech present Extrem General: Yes normal to inspection, No clubbing, No cyanosis and No edema Psych Appearance: grossly normal and well kempt Mental Status: mental status grossly normal Speech and movement: Normal speech and movement present Affect: normal affect Attitude: cooperative Thought process: Normal thought process present and not confabulating Thought content: Normal thought content present Insight: Fair insight present (Psych) Judgement: Fair judgement present (Psych) Assessment & Plan Assessment & Plan (1) Celiac disease: Code(s): K90.0 - Celiac disease Category: Medical (2) Lactose intolerance: Code(s): E73.9 - Lactose intolerance, unspecified Category: Medical Plan She is agreeable to a 10 year follow up. The procedure was well tolerated. The results were explained and the patient is agreeable to the follow-up interval as stated. The bowel pattern has returned to normal. Education was provided to tell any 1st degree relatives about their findings to be sure that they are screened by age 45. Educated that they will be put on a recall list when it is time for their repeat scope but should they move out of state or away from the hospital they will need to remember along with their primary to repeat the procedure in a timely fashion to avoid any adverse complications. WE REVIEW HER LAST COLONOSCOPY FROM [facility] IN 2018 AND THERE WAS NO POLYP, ONLY NORMAL BIOPSIES ON PATHOLOGY. She has read about digestive enzymes and we will trial Creon. she has been following low FODMAP and doing better, BUT her food is limited. She will start this and adding back in foods to ID problems. ROV 12 weeks. Medications: New [id number] 24,000-76,000 -120,000 unit (Creon) 2 caps PO BID 120 caps 3RF 30 days K58.9 - Irritable bowel syndrome without diarrhea Coding Level of Care Code Est Pt Level 3 (70091) Diagnoses Celiac disease K90.0 Lactose intolerance E73.9
[2023-12-20 13:22] VITALS: BP 97/62; PULSE 67; BMI 25.5
== END 2023-12-20 13:53 | disposition home or self-care (01) ==
PROVIDERS: PCP Family Medicine; Visit Provider Nurse Practitioner
DX: K90.0 Celiac disease (principal); E73.9 Lactose intolerance, unspecified
CPT/HCPCS: 99213

== ENCOUNTER → 2023-12-20 13:12 | Outpatient (BNVA) | payer OTHER, SELFPAY | PROVIDERS: PCP Family Medicine; Visit Provider Nurse Practitioner | DX: K90.0 Celiac disease (principal); E73.9 Lactose intolerance, unspecified | CPT/HCPCS: 99212 ==